=== PATIENT | male | born 1985 | race Caucasian/White ===

== ENCOUNTER 2016-11-30 07:06 | Emergency (ER) | payer SELFPAY | END 2016-11-30 07:40 | disposition left against medical advice (07) | LOC: EMS 07:07 | DX: Z00.8 Encounter for other general examination (principal); Z53.21 Procedure and treatment not carried out due to patient leaving prior to being seen by health care provider ==

== ENCOUNTER 2016-12-01 23:27 | Emergency (ER) | payer OTHER ==
[~2016-12-01] VITALS: Ht 167.6 cm; Wt 72.7 kg
[2016-12-02] MEDS ORDERED: LIDOCAINE HCL/PF 1% 2 ML VIAL IM ONE (02:00)
[2016-12-02] MEDS ORDERED: CefTRIAXone SODIUM 1 GM/VIAL IM ONE (02:00)
[2016-12-02] MEDS ORDERED: AZITHROMYCIN 250 MG TABLET PO ONE (02:00)
[2016-12-02 02:37] VITALS: BP 128/76
[2016-12-04 18:13] LABS: GC DNA N.A. AMPLIFY Positive (Negative)
== END 2016-12-02 02:57 | disposition home or self-care (01) ==
LOC: EMS 23:28
DX: R36.9 Urethral discharge, unspecified (principal); R30.0 Dysuria
CPT/HCPCS: 87491; 87591; 96372; 99284; J0696; J3490; 99283

== ENCOUNTER 2017-03-24 07:00 | Emergency (ER) | payer OTHER ==
[~2017-03-24] VITALS: Ht 167.6 cm; Wt 68.0 kg
[2017-03-24] MEDS ORDERED: IBUPROFEN 600 MG TABLET PO ONE (09:00)
[2017-03-24] MEDS ORDERED: METHOCARBAMOL 500 MG TABLET PO ONE (09:00)
[2017-03-24 09:03] VITALS: BP 148/77
== END 2017-03-24 09:05 | disposition home or self-care (01) ==
LOC: EMS 07:01
DX: S46.912A Strain of unspecified muscle, fascia and tendon at shoulder and upper arm level, left arm, initial encounter (principal); X58.XXXA Exposure to other specified factors, initial encounter; Y93.84 Activity, sleeping; Y92.89 Other specified places as the place of occurrence of the external cause; Y99.8 Other external cause status
CPT/HCPCS: 99283

== ENCOUNTER 2017-09-28 11:31 | Emergency (ER) | payer OTHER ==
[~2017-09-28] VITALS: Ht 167.6 cm; Wt 68.2 kg
[2017-09-28] MEDS ORDERED: CefTRIAXone SODIUM 1 GM/VIAL IM ONE (13:15)
[2017-09-28] MEDS ORDERED: AZITHROMYCIN 250 MG TABLET PO ONE (13:15)
[2017-09-28] MEDS ORDERED: LIDOCAINE HCL/PF 1% 2 ML VIAL ONE (13:17)
[2017-09-28 13:41] VITALS: BP 127/81
== END 2017-09-28 13:42 | disposition home or self-care (01) ==
LOC: EMS 11:32
DX: A74.9 Chlamydial infection, unspecified (principal)
CPT/HCPCS: 96372; 99283; J0696; J3490